=== PATIENT | male | born 1970 | race Caucasian/White ===

== ENCOUNTER → 2021-12-08 | Outpatient (CLI) | payer OTHER | LOC: M PLAIMG 14:33 | PROVIDERS: ATTEND Physician Assistant | DX: M51.36 Other intervertebral disc degeneration, lumbar region (principal); M51.26 Other intervertebral disc displacement, lumbar region ==

== ENCOUNTER → 2022-10-20 | Outpatient (CLI) | payer OTHER ==
[2022-10-20 12:00] LABS: COLLAGEN EPINEPHRINE 138 SECONDS (74-162)
== END ==
LOC: M LAB 11:29
PROVIDERS: ATTEND Physical Medicine & Rehabilitation
DX: Z01.812 Encounter for preprocedural laboratory examination (principal)

== ENCOUNTER → 2022-11-27 | Outpatient (CLI) | payer OTHER | LOC: M PLARAD 08:08 | PROVIDERS: ATTEND Physician Assistant | DX: M47.896 Other spondylosis, lumbar region (principal); M51.26 Other intervertebral disc displacement, lumbar region ==

== ENCOUNTER → 2024-11-24 | Outpatient (REF) ==
[~2024-11-24] MED LIST: ALBU8.5H; BUPR1TAB52; GABA-1171; LORA-1041; LOSA50TA28; TRAZ-257; TREL1AER
== END ==
LOC: M PLAIMG 09:44
PROVIDERS: ATTEND Internal Medicine

== ENCOUNTER → 2025-08-02 | Outpatient (CLI) | payer OTHER ==
[~2025-08-02] MED LIST changes: +BUPR-670; -BUPR1TAB52
== END ==
LOC: M PLAIMG 07:12
PROVIDERS: ATTEND Physician Assistant
DX: Z53.9 Procedure and treatment not carried out, unspecified reason (principal)

== ENCOUNTER → 2025-08-31 | Outpatient (CLI) | payer OTHER | LOC: M RAD 08:40 | PROVIDERS: ATTEND Student in an Organized Health Care Education/Training Program | DX: D69.6 Thrombocytopenia, unspecified (principal) ==